=== PATIENT | female | born 1970 | race Caucasian/White ===

== ENCOUNTER 2019-08-16 01:02 | Outpatient (CLI) | payer OTHER, SELFPAY ==
[2019-08-16 18:10] LABS: SARS-CoV-2 RNA PCR Negative
== END 2019-08-16 01:03 | disposition home or self-care (01) ==
LOC: ANHCOVIDDT 01:02
PROVIDERS: PCP Internal Medicine; Visit Provider Internal Medicine Gastroenterology
DX: Z20.828 Contact with and (suspected) exposure to other viral communicable diseases (principal); Z01.812 Encounter for preprocedural laboratory examination
CPT/HCPCS: 87635; C9803; U0003

== ENCOUNTER 2019-08-18 03:06 | Day surgery (SDC) | payer OTHER, SELFPAY ==
[2019-08-14 14:19] VITALS: BMI 23.4
--- NOTE | 2019-08-18 10:14 | P.CONGI_ITS ---
Assessment and Plan Assessment and plan (1) Encounter for screening for colorectal malignant neoplasm: Code(s): Z12.11 - Encounter for screening for malignant neoplasm of colon; Z12.12 - Encounter for screening for malignant neoplasm of rectum Status: Acute Assessment and Plan: Screening colonoscopy will be performed today. (2) Dysphagia: Code(s): R13.10 - Dysphagia, unspecified Status: Acute Assessment and Plan: Patient has difficulty swallowing. Complains of regurgitation and reflux. Plans for EGD to assess for possible underlying GE reflux disease. Possible dilatation of the esophagus. GI Consult Note Consult date/time: 08/18/19 10:14 HPI: Ila Hairston is a 49 year old female seen in evaluation at the request of Dr Gannon. Patient complains of increasing shortness of breath occasional cough. She is seen in evaluation is felt to may be have early asthma. She also complains of acid reflux and regurgitation. Complains of atypical chest pain occasional raspy throat. She states when eating food will pass slowly through her chest. She notices difficulty with solid foods more so than others. She has not been on medicines for acid reflux. She presents today for EGD to evaluate for possible acid reflux contributing to new diagnosis of asthma. She has never had a screening colonoscopy. Past medical history is significant for TMJ and as stated possible asthma. Currently on no medications. [facility] Surgical History Surgical History History of partial hysterectomy Family History Family History Mother Diabetes mellitus Hypertension Father Acute myocardial infarction Social History Social History Smoking status: Never smoker Drinks per week: 10 Gender identity (if verbalized by the patient): Female Sexual Orientation (if Verbalized by the Patient): Straight or Heterosexual Meds Home Medications and Allergies Home Medications Medication Instructions Recorded Confirmed Type imiquimod 5 % TOPICAL DAILY 08/14/19 08/14/19 History Allergies Allergy/AdvReac Type Severity Reaction Status Date / Time aloe vera Allergy Unknown Rash Verified 08/18/19 09:49 Exam Narrative: Exam Narrative: Physical exam reveals patient to be alert. Vital signs stable. HEENT exam unremarkable she is anicteric. Lungs are clear to auscultation and percussion. Heart is without murmur or extra sounds. Abdomin al exam bowel sounds present soft nontender with no organomegaly. Digital external rectal exam Is normal.
--- NOTE | 2019-08-18 10:15 | WPDANESEPPF ---
Anes - Initial Pre Proc Eval Procedure: Operation Date: 08/18/19 10:30 Proposed Procedures p Esophagogastroduodenoscopy&Screen Colon - Vitor Vaz MD Date/Time: 08/18/19 10:15 Surgeon: Vitor Vaz MD Pre Op Diagnosis: neoplasm screening, dysphagia, GERD Patient Data Age: 49 Gender: F Height: 1.7 m Weight: 68 kg Allergies Allergy/AdvReac Type Severity Reaction Status Date / Time aloe vera Allergy Unknown Rash Verified 08/18/19 09:49 Home Medications Medication Instructions Recorded Confirmed Type imiquimod 5 % TOPICAL DAILY 08/14/19 08/14/19 History Patient hx anesthesia problems: none Family hx anesthesia problems: none PMFSH Surgical History Surgical History (Updated 08/17/19 @ 10:13 by Mitchell Mills DO) History of partial hysterectomy Family History Family History (Updated 12/16/15 @ 09:02 by DOCTOR UNKNOWN) Mother Diabetes mellitus Hypertension Father Acute myocardial infarction Social History Social History (Updated 08/18/19 @ 10:15 by Mitchell Mills DO) Smoking status: Never smoker Drinks per week: 10 Gender identity (if verbalized by the patient): Female Sexual Orientation (if Verbalized by the Patient): Straight or Heterosexual Anes - Eval Final PreProcedure Day of Procedure 08/18/19 10:15 Patient weight: normal Heart: regular rate and rhythm Lungs: clear to auscultation and normal air movement Airway: Mallampati scale class II Neurological: alert and oriented Last oral intake: >/= 8 hours ASA classification: II Emergent: no Anesthetic plan: proceed Anesthesia type and monitoring: general GIVS and standard monitoring Informed Consent: The patient's anesthetic plan and its attendant risks and benefits were discussed with the patient/family/POA. Questions were solicited and answers provided to the satisfaction of the patient/family/POA.
[2019-08-18] MEDS: LACTATED RINGERS 1,000 ML 150 ML IV CONT (10:19)
[2019-08-18] MEDS: BENZOCAINE (*SP) 60 ML SPRAY CAN (HURRICAINE) 1 SPRAY MUCOUS MEM (10:55)
[2019-08-18 11:21] VITALS: BP 95/57; PULSE 60; RESP 18; O2SAT 100
[2019-08-18 11:31] VITALS: BP 100/59; PULSE 55; RESP 14; O2SAT 100
[2019-08-18 11:41] VITALS: BP 119/79; PULSE 56; RESP 13; O2SAT 100
== END 2019-08-18 12:05 | disposition home or self-care (01) ==
PROVIDERS: PCP Internal Medicine; Visit Provider Internal Medicine Gastroenterology
PROC: 0DJ08ZZ Inspection of Upper Intestinal Tract, Via Natural or Artificial Opening Endoscopic (ICD-10-PCS; CPT 43235; principal; 2019-08-18 10:30)
DX: Z12.11 Encounter for screening for malignant neoplasm of colon (principal); K64.8 Other hemorrhoids; R13.10 Dysphagia, unspecified; R11.10 Vomiting, unspecified
CPT/HCPCS: 45378; 43239; 87081; J2704; J7120

== ENCOUNTER 2019-09-28 10:02 | Emergency (ER) | payer OTHER, SELFPAY ==
[2019-09-28 10:13] VITALS: BP 129/78; PULSE 65; RESP 20; TEMP 37; O2SAT 100
--- NOTE | 2019-09-28 10:17 | ED.SKABFB ---
HPI - Skin/Abscess/Foreign Bdy General Chief complaint: Skin/Abscess/Foreign Body Stated complaint: rash Time Seen by Provider: 09/28/19 10:17 Source: patient and RN notes reviewed Mode of arrival: ambulatory Limitations: no limitations History of Present Illness HPI narrative: 49 year old female who presents to [facility] care with complaints of rash to body which started yesterday morning, states itching but no burning type of sensation. She states that she has not noted any fevers, chills or sweats, has taken Benadryl orally7 for itching. Patient has been on cream application of Aldara for basal cell skin cancer area on her left upper chest for 3 weeks. 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 Patient states that she has used this cream before with no problem. Patient denies any shortness of breath or any difficulty with her swallowing,respirations even and non labored with no wheezing or tachypnea. 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 MD complaint: rash Onset (ago): day(s) (1) Tetanus up to date: yes Location: generalized Severity: moderate Quality: pruritic Pain Consistency: other (no pain) Relieving factors: none Context: other (unsure on Aldara for 3 weeks) Associated symptoms: itching Treatments prior to arrival: Benadryl Related Data Home Medications Medication Instructions Recorded Confirmed imiquimod 1 applic TOPICAL HS 09/28/19 09/28/19 tiotropium bromide [Spiriva 1 puff INHALATION DAILY 09/28/19 09/28/19 Respimat] Allergies Allergy/AdvReac Type Severity Reaction Status Date / Time aloe vera Allergy Unknown Rash Verified 09/28/19 10:28 Review of Systems Review of Systems: Narrative: CONSTITUTIONAL: Denies fever, chills, or sweats. EYES: Denies visual changes, redness, or discharge. ENT: Denies rhinorrhea, congestion, sore throat, or otalgia. CARDIOVASCULAR: Denies chest pain, palpitations, or edema. RESPIRATORY: Denies cough or dyspnea. GASTROINTESTINAL: Denies abdominal pain, nausea, vomiting, or diarrhea. GENITOURINARY: Denies dysuria or hematuria. SKIN: positive for red welts scattered to back, abdomen, legs and feet, and forearms MUSCULOSKELETAL: Denies back pain, joint pain, or myalgia. NEUROLOGIC: Denies headache, numbness, or weakness. PSYCHIATRIC: Denies anxiety or depression. All systems reviewed & are unremarkable except as noted in HPI and below PMFSH Past Medical History Medical History (Updated 09/28/19 @ 10:51 by Jenni Del Angel NP) Asthma MVP (mitral valve prolapse) Surgical History Surgical History (Updated 09/28/19 @ 10:50 by Jenni Del Angel NP) History of partial hysterectomy History of tonsillectomy Status post surgical removal of malignant neoplasm of skin Social History Social History Smoking status: Never smoker Drinks per week: 10 Gender identity (if verbalized by the patient): Female Comments At time of signature, agree with nursing past medical, surgical, social and family history. There is no relevant family history pertinent to the presenting complaint Exam Narrative: Exam Narrative: GENERAL: Well-appearing, well-nourished, and in no acute distress. HEAD: Normocephalic, atraumatic. EYES: PERRLA and EOMI. ENT: Nares clear, no rhinorrhea or epistaxis. Mucous membranes moist. NECK: Supple.no lymphadenopathy CHEST: Clear to auscultation. No respiratory distress.SAO2 100% on room air HEART: Regular rate and rhythm. No murmur heard. Normal peripheral pulses. ABDOMEN: Soft, nontender, nondistended, normal active bowel sounds. EXTREMITIES: Normal range of motion. No edema. SKIN: Warm, dry;erythematous plaques which are pruritic noted on back, abdomen, legs and dorsal aspects of feet,forearms NEURO: No focal deficits. Alert and oriented x3. Course Vital Signs Vital signs:
== END 2019-09-28 10:51 | disposition home or self-care (01) ==
PROVIDERS: Emergency Provider Registered Nurse; PCP Internal Medicine
DX: L25.1 Unspecified contact dermatitis due to drugs in contact with skin (principal); T45.1X5A Adverse effect of antineoplastic and immunosuppressive drugs, initial encounter; L25.9 Unspecified contact dermatitis, unspecified cause; Z90.711 Acquired absence of uterus with remaining cervical stump; J45.909 Unspecified asthma, uncomplicated; I34.1 Nonrheumatic mitral (valve) prolapse; Z85.828 Personal history of other malignant neoplasm of skin
CPT/HCPCS: 99213; G0463

== ENCOUNTER → 2020-03-27 14:16 | Outpatient (CLI) | payer OTHER, SELFPAY ==
--- NOTE | ~2020-03-27 | MR_ITS ---
EXAMINATION: MR shoulder RT wo con DATE: 03/27/2020 15:03 INDICATION: Right shoulder pain and limited range of motion. TECHNIQUE: Magnetic resonance imaging (MRI) of the right shoulder was performed without intravenous c ontrast. Sequences included axial PD-weighted FS FSE, coronal oblique PD-weighted FS FSE, coronal obl ique T2-weighted FS FSE, sagittal PD-weighted FS FSE, and sagittal T1-weighted SE. COMPARISON: None. FINDINGS: Coracoacromial arch: The acromion undersurface is curved in morphology (type II). The coracoacromial ligament is normal. M ild acromioclavicular osteoarthritis. Rotator cuff: Mild infraspinatus tendinopathy without discrete tear. The supraspinatus, subscapularis and teres min or tendons are normal. Normal rotator cuff muscle bulk and signal. Biceps tendon, glenoid labrum and glenohumeral cartilage: Long head of the biceps tendon is normal. Glenoid labrum is normal. Glenohumeral cartilage is normal. Fluid: Small amount of fluid in the long head biceps tendon sheath which is disproportionate to the physiolo gic amount of fluid in the glenohumeral joint space consistent with mild bicipital tenosynovitis. No loose osteochondral bodies. Small amount of fluid in the subacromial/subdeltoid bursa consistent with mild bursitis. Bones: Normal marrow signal with no edema, fracture or abnormal marrow replacing process. There is thickenin g of the glenohumeral capsule at the axillary recess. There is also increased intermediate signal int ensity soft tissue replacing the normal T1 hyperintense fat signal at the rotator cuff interval, both findings which can be seen in the setting of adhesive capsulitis which is a clinical diagnosis. IMPRESSION: 1. Capsular thickening at the axillary recess and increased soft tissue density rotator cuff interval , both findings suggestive of adhesive capsulitis which is a clinical diagnosis. 2. Mild bicipital tenosynovitis and mild subacromial/subdeltoid bursitis. 2. Mild distal infraspinatus tendinopathy without discrete tear. Reviewed, dictated and finalized at location B. TROLYSIS OPERATOR IMPRESSION: 1. Capsular thickening at the axillary recess and increased soft tissue density rotator cuff interval, both findings suggestive of adhesive capsulitis which i s a clinical diagnosis. 2. Mild bicipital tenosynovitis and mild subacromial/subdeltoid bursitis. 2. Mild distal infraspinatus tendinopathy without discrete tear.
== END ==
PROVIDERS: PCP Internal Medicine; Visit Provider Physician Assistant Medical
DX: M75.21 Bicipital tendinitis, right shoulder (principal)
CPT/HCPCS: 73221

== ENCOUNTER 2020-09-22 16:08 | Emergency (ER) | payer OTHER, SELFPAY ==
[2020-09-22 16:15] VITALS: BP 135/72; PULSE 61; RESP 16; TEMP 37.4; O2SAT 99
--- NOTE | 2020-09-22 16:47 | ED.SKABFB ---
HPI - Skin/Abscess/Foreign Bdy General Chief complaint: Skin/Abscess/Foreign Body Stated complaint: rash History of Present Illness HPI narrative: This is a 50-year-old female comes in complaining of a rash that she has on her right and thigh area states that she is having probably 4 days. Patient states that she has some itching denies having any pain. Patient right side. Related Data Home Medications Medication Instructions Recorded Confirmed estradiol 09/22/20 progesterone micronized mg 09/22/20 Allergies Allergy/AdvReac Type Severity Reaction Status Date / Time aloe vera Allergy Unknown Rash Verified 09/28/19 10:28 Review of Systems Review of Systems: Narrative: CONSTITUTIONAL: Denies fever, chills, or sweats. EYES: Denies visual changes, redness, or discharge. ENT: Denies rhinorrhea, congestion, sore throat, or otalgia. CARDIOVASCULAR:Denies chest pain, palpitations, or edema. RESPIRATORY: Denies cough or dyspnea. GASTROINTESTINAL: Denies abdominal pain, nausea, vomiting, or diarrhea. GENITOURINARY: Denies dysuria or hematuria. SKIN: Reports right side rash or itching. MUSCULOSKELETAL:Denies back pain, joint pain, or myalgia. NEUROLOGIC: Denies headache, numbness, or weakness. PSYCHIATRIC:Denies anxiety or depression PMFSH Past Medical History Medical History (Updated 09/22/20 @ 16:59 by Leny Loomis NP) Asthma MVP (mitral valve prolapse) Surgical History Surgical History (Updated 09/28/19 @ 10:50 by Jenni Del Angel NP) History of partial hysterectomy History of tonsillectomy Status post surgical removal of malignant neoplasm of skin Family History Family History Mother Diabetes mellitus Hypertension Father Acute myocardial infarction Social History Social History Smoking status: Never smoker Drinks per week: 10 Gender identity (if verbalized by the patient): Female Comments At time as signature, I have reviewed and agree with nursing past medical, social, surgical and family history. Please see nursing chart for further information. There is no relevant family history pertinent to the presenting complaint. Exam Narrative: Exam Narrative: GENERAL:Well-appearing, well-nourished, and in no acute distress. HEAD:Normocephalic, atraumatic. EYES: PERRLA and EOMI. ENT: Nares clear, no rhinorrhea or epistaxis. Mucous membranes moist. NECK: Supple. CHEST: Clear to auscultation. No respiratory distress. HEART: Regular rate and rhythm. No murmur heard. Normal peripheral pulses. ABDOMEN: Soft, nontender, nondistended, normal active bowel sounds. EXTREMITIES: Normal range of motion. No edema. SKIN: Warm, dry, erythema to the right with no drainage but per the right buttocks with some itching rash. NEURO: No focal deficits. Alert and oriented x3. Course SUPERINTENDENT STATIONS/PA Physician Supervision Discussed with patient that this could possibly not be shingles and just a rash or allergic or atopic dermatitis Vital Signs Vital signs: Vital Signs Temperature 99.3 F 09/22/20 16:15 Pulse Rate 61 09/22/20 16:15 Respiratory Rate 16 09/22/20 16:15 Blood Pressure 135/72 09/22/20 16:15 Pulse Oximetry 99 09/22/20 16:15 Temperature 99.3 F 09/22/20 16:15 Pulse Rate 61 09/22/20 16:15 Respiratory Rate 16 09/22/20 16:15 Blood Pressure 135/72 09/22/20 16:15 Pulse Oximetry 99 09/22/20 16:15 MDM - Skin/Abscess/Foreign Bdy Differential Diagnosis Differential diagnosis: Likely abscess of skin or subcutaneous tissue, viral exanthem, urticaria, allergic reaction to drug, eczema, impetigo and contact dermatitis Discharge Plan Discharge Clinical Impression: Shingles (herpes zoster) polyneuropathy Patient Disposition: Home, Self-Care Condition: Stable Instructions: Antibiotic Form, Shingles (ED) Additional Instructions: Use skin creams/lotion, such as
== END 2020-09-22 17:07 | disposition home or self-care (01) ==
PROVIDERS: Emergency Provider Nurse Practitioner Family; PCP Internal Medicine
DX: B02.23 Postherpetic polyneuropathy (principal); J45.909 Unspecified asthma, uncomplicated; I34.1 Nonrheumatic mitral (valve) prolapse
CPT/HCPCS: 99213; G0463

== ENCOUNTER 2021-05-15 12:39 | Emergency (ER) | payer OTHER, SELFPAY ==
[2021-05-15 12:41] VITALS: BP 118/89; PULSE 62; RESP 12; TEMP 36.8; O2SAT 99
--- NOTE | 2021-05-15 12:46 | ED.FEMALEGU ---
HPI - Female Genitourinary General Chief complaint: Urogenital-Female Stated complaint: UTI SYMPTOMS Time Seen by Provider: 05/15/21 12:45 Source: patient and old records reviewed History of Present Illness HPI Narrative: 50 year old female presents to [facility] care with 2 weeks history of burning at end of urination with some frequency of urination. Patient report that she has some lower supra pubic pressure, denies any blood noted in urine or any acute odor of urine. Patient reports that she does have history of past urinary tract infections. Patient denies any concern for STD exposure, no vaginal discharge or itching. Patient denies any nausea or vomiting or diarrhea, denies any fevers, chills or sweats. MD elicited complaint: dysuria and UTI Related Data Home Medications Medication Instructions Recorded Confirmed estradiol 09/22/20 progesterone micronized mg 09/22/20 testosterone 05/15/21 Allergies Allergy/AdvReac Type Severity Reaction Status Date / Time aloe vera Allergy Unknown Rash Verified 05/15/21 12:42 Review of Systems Review of Systems: CONSTITUTIONAL: Denies fever, chills, or sweats. EYES: Denies visual changes, redness, or discharge. ENT: Denies rhinorrhea, congestion, sore throat, or otalgia. CARDIOVASCULAR: Denies chest pain, palpitations, or edema. RESPIRATORY: Denies cough or dyspnea. GASTROINTESTINAL: Suprapubic pressure, no nausea, vomiting, or diarrhea. GENITOURINARY: Positive dysuria no hematuria. SKIN: Denies rash or itching. MUSCULOSKELETAL: Denies back pain, joint pain, or myalgia. NEUROLOGIC: Denies headache, numbness, or weakness. PSYCHIATRIC: Denies anxiety or depression. All systems reviewed & are unremarkable except as noted in HPI and below [facility] Past Medical History Medical History (Updated 05/15/21 @ 13:05 by Jenni Del Angel NP) Asthma MVP (mitral valve prolapse) Surgical History Surgical History (Updated 09/28/19 @ 10:50 by Jenni Del Angel NP) History of partial hysterectomy History of tonsillectomy Status post surgical removal of malignant neoplasm of skin Family History Family History Mother Diabetes mellitus Hypertension Father Acute myocardial infarction Social History Social History Smoking status: Never smoker Drinks per week: 10 Gender identity (if verbalized by the patient): Female Sexual Orientation (if Verbalized by the Patient): Straight or Heterosexual Comments At time of signature, agree with nursing past medical, surgical, social and family history. There is no relevant family history pertinent to the presenting complaint Exam Narrative: GENERAL: Well-appearing, well-nourished, and in no acute distress. HEAD: Normocephalic, atraumatic. EYES: PERRLA and EOMI. ENT: Nares clear, no rhinorrhea or epistaxis. Mucous membranes moist. TMs normal with good light reflex. Throat pink with no lesions or exudates no tonsils present NECK: Supple. No lymphadenopathy CHEST: Clear to auscultation. No respiratory distress. No tachypnea SaO2 99% on room air HEART: Regular rate and rhythm. No murmur heard. Normal peripheral pulses. ABDOMEN: Soft, nontender, nondistended, normal active bowel sounds. Reports some burning at end of urination with frequency with some pressure lower suprapubic abdomen, no flank pain EXTREMITIES: Normal range of motion. No edema. SKIN: Warm, dry, no rash. NEURO: No focal deficits. Alert and oriented x3. Course Course Level of Care: Express Care Visit Vital Signs Vital signs: Vital Signs Temperature 36.8 C 05/15/21 12:41 Pulse Rate 62 05/15/21 12:41 Respiratory Rate 12 05/15/21 12:41 Blood Pressure 118/89 05/15/21 12:41 Pulse Oximetry 99 05/15/21 12:41 Temperature 36.8 C 05/15/21 12:41 Pulse Rate 62 05/15/21 12:41 Respiratory Rate 12 05/15/21 12:41 Blood Pressure 118/89
== END 2021-05-15 13:13 | disposition home or self-care (01) ==
PROVIDERS: Emergency Provider Registered Nurse; PCP Internal Medicine
DX: N39.0 Urinary tract infection, site not specified (principal); J45.909 Unspecified asthma, uncomplicated; I34.1 Nonrheumatic mitral (valve) prolapse
CPT/HCPCS: 81003; 87086; 99213; G0463

== ENCOUNTER 2022-09-28 16:10 | Outpatient (CLI) | payer BC, SELFPAY ==
--- NOTE | ~2022-09-28 | XR_ITS ---
EXAMINATION: XR knee RT 3V DATE: 09/28/2022 16:31 INDICATION: Right knee pain. Fall. TECHNIQUE: 3 views of right knee were obtained. COMPARISON: None. FINDINGS: Bone alignment is normal. No fracture. There is mild osteoarthritis of medial and patellofe moral compartments characterized by tiny osteophytes. No joint space narrowing. No knee joint effusio n. IMPRESSION: 1. Mild right knee osteoarthritis. Reviewed, dictated and finalized at location A.
== END 2022-09-28 16:11 | disposition home or self-care (01) ==
PROVIDERS: PCP Physician Assistant Medical; Visit Provider Nurse Practitioner Family
DX: M17.11 Unilateral primary osteoarthritis, right knee (principal)
CPT/HCPCS: 73562

== ENCOUNTER 2022-10-15 09:48 | Outpatient (CLI) | payer BC, SELFPAY ==
--- NOTE | 2022-10-15 09:53 | EST_ITS ---
Patient Info Name: Ila Hairston Age: 52 years : 1970 Gender: Female Ht: 67 in Wt: 150 lbs BSA: 1.80 m2 HR: 49 bpm BP: 122 / 75 mmHg Heart Rhythm: Sinus Rhythm Exam Date: 10/15/2022 10:07 AM Exam Location: [facility] Stress Patient Status: Outpatient Admit Date: 10/15/2022 Staff Ordering Physician: Juana Rivera Attending Provider: Juana Rivera Exercise Technologist: Carmen Blanchard CT Exercise Physician: Yuri Rueda DO Exam Type: CA stress test treadmill Study Info Indications R55 - Syncope and collapse R07.89 - Other chest pain A treadmill exercise stress test was performed. Summary 1. 1. Negative Amando exercise stress test for ischemic ST changes by ECG criteria. 2. 2. Good functional capacity, achieving 12 METs of workload. 3. 3. Conversational ventricular ectopics and ventricular bigeminy. 4. 4. Appropriate HR response to exercise. 5. 5. Appropriate HR recovery at 1 minute post exercise. 6. 6. No imaging with stress testing. 7. 7. Patient informed of the above results. Protocol: [facility] Stress ECG Details Stage: REST Duration (min): 5 min : 6 sec Speed (mph): 0.0 Grade (%): 0 HR (bpm): 54 SBP (mmHg): 122 DBP (mmHg): 75 METS: --- Stage: REST Duration (min): 5 min : 30 sec Speed (mph): 0.0 Grade (%): 0 HR (bpm): 53 SBP (mmHg): 122 DBP (mmHg): 75 METS: --- Stage: STAGE 1 Duration (min): 1 min : 0 sec Speed (mph): 1.7 Grade (%): 10 HR (bpm): 80 SBP (mmHg): 122 DBP (mmHg): 75 METS: --- Stage: STAGE 1 Duration (min): 2 min : 0 sec Speed (mph): 1.7 Grade (%): 10 HR (bpm): 87 SBP (mmHg): 122 DBP (mmHg): 75 METS: --- Stage: STAGE 1 Duration (min): 3 min : 0 sec Speed (mph): 1.7 Grade (%): 10 HR (bpm): 88 SBP (mmHg): 127 DBP (mmHg): 68 METS: --- Stage: STAGE 2 Duration (min): 1 min : 0 sec Speed (mph): 2.5 Grade (%): 12 HR (bpm): 100 SBP (mmHg): 127 DBP (mmHg): 68 METS: --- Stage: STAGE 2 Duration (min): 2 min : 0 sec Speed (mph): 2.5 Grade (%): 12 HR (bpm): 107 SBP (mmHg): 130 DBP (mmHg): 70 METS: --- Stage: STAGE 2 Duration (min): 3 min : 0 sec Speed (mph): 2.5 Grade (%): 12 HR (bpm): 108 SBP (mmHg): 130 DBP (mmHg): 70 METS: --- Stage: STAGE 3 Duration (min): 1 min : 0 sec Speed (mph): 3.4 Grade (%): 14 HR (bpm): 128 SBP (mmHg): 157 DBP (mmHg): 79 METS: --- Stage: STAGE 3 Duration (min): 2 min : 0 sec Speed (mph): 3.4 Grade (%): 14 HR (bpm): 122 SBP (mmHg): 157 DBP (mmHg): 79 METS: --- Stage: STAGE 3 Duration (min): 3 min : 0 sec Speed (mph): 3.4 Grade (%): 14 HR (bpm): 125 SBP (mmHg): 169 DBP (mmHg): 82 METS: --- Stage: STAGE 4 Duration (min): 1 min : 0 sec Speed (mph): 4.2 Grade (%): 16 HR (bpm): 140 SBP (mmHg): 169 DBP (mmHg): 82 METS: --- Stage: STAGE 4 Duration (min): 1 min : 10 sec Speed (mph): 4.2 Grade
== END 2022-10-15 09:49 | disposition home or self-care (01) ==
PROVIDERS: PCP Physician Assistant Medical; Visit Provider Nurse Practitioner Family
DX: R07.9 Chest pain, unspecified (principal); R55 Syncope and collapse
CPT/HCPCS: 93017

== ENCOUNTER 2022-11-16 06:53 | Outpatient (CLI) | payer BC, SELFPAY ==
--- NOTE | ~2022-11-16 | MR_ITS ---
MRI of the right knee Clinical history: Pain Technique: Coronal proton density and proton density-weighted images, sagittal proton-density and T2 fat-sat images, and axial proton-density fat-saturated images were acquired. Findings: Anterior and posterior cruciate ligaments are intact. There is mild grade 2 injury of the p roximal MCL, which is thickened with increased signal surrounding soft tissue edema. Lateral collater al ligament complex is intact. Popliteus tendon is intact. Medial and lateral menisci are intact, without evidence of tear. There is mild chondromalacia patella. Remaining articular cartilage is well preserved. Bone marrow si gnals are unremarkable. Extensor mechanism is intact. No significant joint effusion or Coleman's cyst. Impression: Mild grade 2 injury of the proximal MCL, as detailed above. Mild chondromalacia patella. Reviewed, dictated and finalized at [facility]. Impression: Mild grade 2 injury of the proximal MCL, as detailed above. Mild chondromalacia patella.
== END 2022-11-16 06:54 | disposition home or self-care (01) ==
PROVIDERS: PCP Physician Assistant Medical; Visit Provider Nurse Practitioner Family
DX: M25.561 Pain in right knee (principal)
CPT/HCPCS: 73721

== ENCOUNTER 2023-12-10 08:01 | Outpatient (CLI) | payer BC, SELFPAY ==
--- NOTE | ~2023-12-10 | XR_ITS ---
Left wrist Technique: PA, oblique, lateral, and ulnar deviation views were obtained. Clinical History: Pain Findings: No acute fracture or dislocation is seen. Osseous alignment is anatomic. Joint spaces are p reserved. Soft tissues are unremarkable. Impression: Unremarkable left wrist radiographs. Reviewed, dictated and finalized at location . Impression: Unremarkable left wrist radiographs.
[2023-12-10 08:24] LABS: Basophils Percent Auto 0.8 % (0.2-1.2); Eosinophils Absolute Auto 0.1 K/mm3 (0-0.3); Eosinophils Percent Auto 1.3 % (0-4.4); Hematocrit 43.6 % (37.0-47.0); Hemoglobin 14.6 g/dL (12.0-15.0); Immature Granulocyte Absolute 0.01 K/mm3 (0.00-0.031); Immature Granulocyte Percent A 0.2 % (0-0.5); Lymphocytes Absolute Auto 2.01 K/mm3 (0.9-3.2); Lymphocytes Percent Auto 38.4 % (18.3-44.2); Mean Corpuscular HGB Conc 33.5 g/dl (32-36); Mean Corpuscular Hemoglobin 30.6 pg (26-34); Mean Corpuscular Volume 91.4 fl (80-100); Mean Platelet Volume 10.8 fl (7.4-10.4); Monocytes Absolute Auto 0.3 K/mm3 (0.1-0.6); Monocytes Percent Auto 6.3 % (2.6-8.5); Neutrophils Absolute Auto 2.8 K/mm3 (1.3-6.7); Platelet Count Result 207 k/mm3 (150-375); Red Blood Count 4.77 M/mm3 (4.2-5.4); Red Cell Distribution Width 11.7 % (11.5-14.5); White Blood Count 5.2 K/mm3 (4.5-10.0)
[2023-12-10 08:36] LABS: Alanine Aminotransferase 17 U/L (6-35); Albumin Level 4.6 g/dL (3.5-5.1); Alkaline Phosphatase 55 U/L (38-126); Anion Gap 8 mmol/L (4-12); Aspartate Amino Transferase 28 U/L (14-36); Bilirubin,Total 0.5 mg/dL (0.2-1.3); Blood Urea Nitrogen 18 mg/dL (7-17); Calcium 9.3 mg/dL (8.4-10.2); Carbon Dioxide 28 mmol/L (22-30); Chloride 102 mmol/L (98-107); Cholesterol 237 mg/dL (0-200); Estimated Glomerular Filt Rate 58; Glucose 103 mg/dL (65-110); HDL Direct 71 mg/dL; Potassium 4.4 mmol/L (3.4-5.0); Sodium 138 mmol/L (137-145); Triglycerides 102 mg/dL (<150)
[2023-12-10 08:47] LABS: LDL Cholesterol Direct 107 mg/dL
== END 2023-12-10 08:02 | disposition home or self-care (01) ==
PROVIDERS: PCP Physician Assistant Medical; Visit Provider Physician Assistant Medical
DX: Z00.00 Encounter for general adult medical examination without abnormal findings (principal); E55.9 Vitamin D deficiency, unspecified; E78.5 Hyperlipidemia, unspecified; M25.532 Pain in left wrist; M79.645 Pain in left finger(s)
CPT/HCPCS: 36415; 73110; 80053; 80061; 84443; 85025

== ENCOUNTER 2023-12-24 15:34 | Outpatient (CLI) | payer BC, SELFPAY ==
[2023-12-24 16:04] LABS: Add Urine Microscopic? YES; Appearance Urine Clear (Clear); Bacteria Urine Rare /hpf; Bilirubin Urine Negative (Negative); Blood Urine Negative (Negative); Color Urine Yellow (Yellow); Glucose Urine UA Negative (Negative); Ketones Urine Negative (Negative); Leukocyte Esterase Ur 1+ LEU/UL (Negative); Nitrate Urine Negative (Negative); Non Pathogenic Casts 0-2; Protein Urine Negative (Negative); RBC Urine 0-2 /hpf (0-2); Specific Grav Ur 1.007 (1.001-1.035); Squamous Epithelial Cell Urine Occasional /hpf (Few); Urobilinogen Urine 0.2 mg/dL (<2.0)
[2023-12-28 15:09] LABS: Sex Hormone Binding Globulin 68 nmol/L (17-124)
[2023-12-30 03:59] LABS: Testosterone Total 16 ng/dL (2-45)
== END 2023-12-24 15:35 | disposition home or self-care (01) ==
PROVIDERS: PCP Physician Assistant Medical; Referring Provider Physician Assistant Medical
DX: R68.82 Decreased libido (principal); N28.9 Disorder of kidney and ureter, unspecified; R82.998 Other abnormal findings in urine
CPT/HCPCS: 36415; 81001; 84270; 84403; 87086

== ENCOUNTER 2024-03-15 07:11 | Outpatient (CLI) | payer OTHER, SELFPAY ==
--- NOTE | ~2024-03-15 | MR_ITS ---
EXAMINATION: MR brain/brain stem wo con DATE: 03/15/2024 07:43 INDICATION: Syncope and collapse. TECHNIQUE: Magnetic resonance imaging (MRI) of the brain and brainstem was performed without intraven ous contrast. COMPARISON: None. FINDINGS: There are scattered areas of nonspecific increased T2-weighted signal intensity in the cere bral white matter, which is within normal limits for the patient's age. There is no intracranial hemo rrhage, acute infarction, or abnormal intracranial mass lesion. The ventricles are normal in size. Th ere is mucosal thickening in the paranasal sinuses. The orbits are normal. There is a trace left mast oid effusion. IMPRESSION: 1. Normal aging brain. Reviewed, dictated and finalized at location [] D DUMPER IMPRESSION: 1. Normal aging brain.
== END 2024-03-15 07:12 | disposition home or self-care (01) ==
LOC: MICIMG 07:14
PROVIDERS: PCP Physician Assistant Medical; Visit Provider Physician Assistant Medical
DX: R55 Syncope and collapse (principal)
CPT/HCPCS: 70551